=== PATIENT | female | born 1940 | race Caucasian/White ===

== ENCOUNTER 2022-07-23 09:53 | Inpatient (IN) ==
[2022-07-23 10:44] LABS: Hematocrit 53 % (35-47); Hemoglobin 16.9 g/dL (12.0-16.0); Mean Corpuscular HGB Conc 32 g/dL (31-36); Mean Corpuscular Hemoglobin 31 pg (27-31); Mean Corpuscular Volume 97 fL (80-97); Platelet Count 307 10^3/uL (150-450); Red Blood Count 5.47 10^6 /uL (3.70-4.87); Red Cell Distribution Width 14 % (10-15)
[2022-07-23 10:56] LABS: High Sens Troponin Baseline 21 pg/mL (<15)
[2022-07-23 11:05] LABS: Activated Partial Thrombo Time 28.3 seconds (26.0-38.0); INR 1.05 (0.88-1.18)
[2022-07-23 11:13] LABS: Albumin 4.2 g/dL (3.2-5.2); CO2 Carbon Dioxide 27 mmol/L (22-32); Calcium 11.1 mg/dL (8.6-10.3); Chloride 106 mmol/L (101-111); Sodium 139 mmol/L (135-145)
[2022-07-23 11:14] LABS: ABS Basophils 0.1 10^3/ul (0-0.2); ABS Eosinophils 0.4 10^3/ul (0-0.6); ABS Lymphocytes 1.4 10^3/ul (1.0-4.8); ABS Monocytes 0.7 10^3/ul (0-0.8); ABS Neutrophils 10.4 10^3/ul (1.5-7.7); Eosinophil % 2.9 %; Large Platelets Present
[2022-07-23 11:19] LABS: ALT 13 U/L (7-52); Albumin/Globulin Ratio 1.1 (1-3); Alkaline Phosphatase 130 U/L (35-149); Blood Urea Nitrogen 32 mg/dL (6-24); C Reactive Protein 21.15 mg/L (<8.01); Creatinine, Serum 1.63 mg/dL (0.51-0.95); Globulin 3.9 g/dL (2-4); Glucose 154 mg/dL (70-100); Total Protein 8.1 g/dL (6.4-8.9); eGFR CKD-EPI 31.7 (>60)
[2022-07-23 11:20] LABS: Anion Gap 6 mmol/L (2-11)
[2022-07-23 12:06] LABS: High Sensitivity Troponin 1 Hr 18 pg/mL (<15)
[2022-07-23] MEDS ORDERED: Lorazepam PYXIS KEY PRN (12:42)
[2022-07-23] MEDS ORDERED: Morphine ORAL CONCENTRATE 5 MG/0.25 ML ORAL.SYRIN PO PRN (14:08)
[2022-07-23 15:46] VITALS: BP 170/112
[2022-07-23] MEDS: LORazepam 2 mg VIAL 1 ml IV PUSH PRN (23:00)
[2022-07-24] MEDS: LORazepam 2 mg VIAL 1 ml IV PUSH PRN (08:42)
[2022-07-24] MEDS: Morphine 2 MG/ML SYRINGE IV PRN ×3 (10:28→14:21)
[2022-07-24] MEDS ORDERED: Morphine 2 MG/ML SYRINGE IV PRN (15:42)
[2022-07-24] MEDS: Morphine ORAL CONCENTRATE 5 MG/0.25 ML ORAL.SYRIN PO SCH ×4 (17:04→23:02)
[2022-07-25] MEDS: Morphine ORAL CONCENTRATE 5 MG/0.25 ML ORAL.SYRIN PO SCH ×7 (01:03→11:50)
== END 2022-07-25 09:38 | disposition expired | DRG 66 ==
LOC: EDHOLD 09:53 → ED 09:53 → OBSVTOIN 12:45 → MED 15:18
PROVIDERS: ADMIT Internal Medicine; ATTEND Internal Medicine